=== PATIENT | female | born 1950 | race African-American/Black ===

== ENCOUNTER → 2018-10-28 | Outpatient (CLI) | payer MEDICARE ==
[~2018-10-28] MED LIST: REGADENOSON 0.4 MG/5 ML SYR IV ONE
[2018-10-28 14:07] LABS: BASOPHILS % 0.6 % (0.0-1.0); HEMATOCRIT 36.8 % (34.2-44.1); HEMOGLOBIN 11.9 g/dL (12.0-16.0); LYMPHOCYTES # (AUTO) 1.5 (1.0-3.2); LYMPHOCYTES % 28.3 % (18.0-39.1); MEAN CORPUSCULAR HEMOGLOBIN 29.9 pg (28-32); MEAN CORPUSCULAR HGB CONC 32.3 g/dL (31-35); MEAN CORPUSCULAR VOLUME 92.5 fL (81-99); MONOCYTES # (AUTO) 0.4 (0.2-0.8); NEUTROPHILS # (AUTO) 3.2 (2.1-6.9); NEUTROPHILS % 63.1 % (38.7-80.0); PLATELET COUNT 246 x10e3/uL (140-360); RED BLOOD COUNT 3.98 x10e6/uL (3.6-5.1); RED CELL DISTRIBUTION WIDTH 13.8 % (11.7-14.4)
[2018-10-28 14:33] LABS: ALANINE AMINOTRANSFERASE 26 IU/L (0-55); ALBUMIN 3.8 g/dL (3.5-5.0); ALBUMIN/GLOBULIN RATIO 0.8 (0.8-2.0); ALKALINE PHOSPHATASE 85 IU/L (40-150); ANION GAP 12.3 mmol/L (8-16); BLOOD UREA NITROGEN 11 mg/dL (7-26); BUN/CREATININE RATIO 15 (6-25); CALCIUM 9.7 mg/dL (8.4-10.2); CARBON DIOXIDE 28 mmol/L (22-29); CHLORIDE 102 mmol/L (98-107); CHOL/HDL RATIO 3.4 (3.0-3.6); CHOLESTEROL 208 MD/DL (0-199); CREATINE KINASE 94 IU/L (29-168); CREATININE, SERUM 0.73 mg/dL (0.57-1.11); EST GLOMERULAR FILTRATION RATE > 60 ML/MIN (60-); GLUCOSE 77 mg/dL (74-118); HDL CHOLESTEROL 61 MG/DL (40-60); LDL CHOLESTEROL 133 MG/DL (60-130); POTASSIUM 4.3 mmol/L (3.5-5.1); SODIUM 138 mmol/L (136-145); TRIGLYCERIDES 72 MG/DL (0-149)
--- NOTE | 2018-11-02 11:11 | Cardiology Report ---
DATE OF STUDY: October 28, 2018 NUCLEAR GATED MYOCARDIAL PERFUSION SCAN Thank you, Dr. Deshaun Garcia, for the nuclear interpretation consultation. Nuclear gated myocardial perfusion scan performed as per protocol at [facility]. Lexiscan injected 0.4 mg intravenously as stress agent, and Myoview injected 11 mCi for resting protocol and 32.8 mCi for stress protocol. The stress test is supervised by Dr. Deshaun Garcia. I read only the nuclear part of the stress test. IMPRESSION: Normal gated myocardial perfusion scan. Ejection fraction is 65% to 70%. No evidence of ischemia or scar noted. Normal study. Job#: [id number]
== END ==
LOC: NM 10:51
PROVIDERS: ATTEND Internal Medicine Cardiovascular Disease
DX: R07.9 Chest pain, unspecified (principal); R94.31 Abnormal electrocardiogram [ECG] [EKG]
CPT/HCPCS: 36415; 78452; 80053; 80061; 82550; 85025; 93017; A9502; J2785